=== PATIENT | female | born 1960 | race Caucasian/White ===

== ENCOUNTER 2017-03-24 20:37 | Emergency (ER) | payer BC ==
[2017-03-24 21:25] LABS: #Basophils 0.1 thou/uL (0.0-0.2); #Eosinphils 0.1 thou/uL (0.0-0.7); #Lymphocytes 1.5 thou/uL (1.20-3.40); #Monocytes 0.5 thou/uL (0.11-0.59); #Neutrophils 2.6 thou/uL (1.40-6.50); %Basophils 1.7 % (0.0-1.0); %Eosinophils 3.1 % (0.0-10.0); %Lymphocytes 30.3 % (21.0-51.0); Hematocrit 38.3 % (36.0-47.0); Mean Platelet Volume 8.1 fL (7.4-10.4); Red Blood Cell (RBC) Count 4.48 mill/uL (4.20-5.40); White Blood Cell (WBC) Count 4.8 thou/uL (4.8-10.8)
[2017-03-24 21:28] LABS: Bilirubin Negative (Negative); Blood, Urine Trace (Negative); Glucose, Urine (Dipstick) Negative (Negative); Ketone, Urine 15 mg/dL (Negative); Nitrite Negative (Negative); Protein, Urine (Dipstick) Negative (Neg-Trace); Urobilinogen 0.2 mg/dL (0.2-1.0)
[2017-03-24 21:35] LABS: ALT (SGPT) 11 U/L (8-55); AST (SGOT) 22 U/L (5-34); Alkaline Phosphatase 95 U/L (40-150); Anion Gap 15 mmol/L (10-20); BUN (Urea Nitrogen) 26 mg/dL (9.8-20.1); Bilirubin, Total 0.6 mg/dL (0.2-1.2); CK (CPK) 93 U/L (29-168); Calc. Creatinine Clearance 0 mL/min (70-130); Calcium 9.8 mg/dL (7.8-10.44); Carbon Dioxide 20 mmol/L (22-29); Chloride 108 mmol/L (98-107); Estimated GFR-MDRD 77; Globulin 2.8 g/dL (2.4-3.5); Protein, Total 6.9 g/dL (6.0-8.3)
[2017-03-24 21:35] LABS: Bacteria/HPF 2+ HPF (None Seen); RBC/HPF 0-3 HPF (0-3)
[2017-03-24 21:36] LABS: Troponin I Less than 0.010 ng/mL (< 0.028)
--- NOTE | 2017-03-24 21:56 | RAD ---
AP VIEW OF THE CHEST: 03/24/17 INDICATION: History of gastric sleeve surgery last month, now with back pain, palpitations, hand and foot numbne ss. IMPRESSION: No acute cardiopulmonary abnormality. The examination is not appreciably changed from comparison christine ed 01/20/17. POS: [facility]
== END 2017-03-24 22:18 | disposition home or self-care (01) ==
LOC: SCSER 20:37
DX: R20.2 Paresthesia of skin (principal); R11.0 Nausea; I10 Essential (primary) hypertension; E66.9 Obesity, unspecified; E87.6 Hypokalemia; F32.9 Major depressive disorder, single episode, unspecified; F41.9 Anxiety disorder, unspecified
CPT/HCPCS: 71010; 80053; 81003; 81015; 82550; 82553; 84484; 85025; 85379; 93005

== ENCOUNTER 2018-05-15 19:59 | Observation (INO) | payer BC ==
[~2018-05-15 19:59] MED LIST: Iopamidol 300 61% 100 ML VIAL FS ONE
[2018-05-15] MEDS ORDERED: Morphine 4 MG/ML VIAL ONE ×2 (20:21→21:32)
[2018-05-15 20:35] LABS: Bilirubin Negative (Negative); Blood, Urine Negative (Negative); Clarity Clear (Clear); Glucose, Urine (Dipstick) Negative (Negative); Leukocyte Small (Negative); Nitrite Negative (Negative); Protein, Urine (Dipstick) Negative (Neg-Trace); Specific Gravity, Urine 1.025 (1.005-1.030); Urobilinogen 0.2 mg/dL (0.2-1.0)
[2018-05-15 20:36] LABS: Bacteria/HPF Rare-Few HPF (None Seen); Crystals/HPF 1+ CA OXALATE HPF (Negative); RBC/HPF 0-3 HPF (0-3); Squamous Epithelial 0-3 HPF (0-3)
[2018-05-15 20:37] LABS: Hemoglobin 13.8 g/dL (12.0-16.0); Mean Corpuscular HGB CONC 33.2 g/dL (32.0-36.0); Mean Corpuscular Hemoglobin 29.4 pg (27.0-31.0); Mean Corpuscular Volume 88.7 fL (78.0-98.0); Mean Platelet Volume 7.9 fL (7.4-10.4); Platelet Count 177 thou/uL (130-400); Red Blood Cell (RBC) Count 4.69 mill/uL (4.20-5.40); White Blood Cell (WBC) Count 7.8 thou/uL (4.8-10.8)
[2018-05-15 20:38] LABS: #Neutrophils 4.3 thou/uL (1.40-6.50); %Basophils 1.5 % (0.0-1.0); %Eosinophils 1.9 % (0.0-10.0); %Monocytes 6.7 % (0.0-10.0); %Neutrophils 54.9 % (42.0-75.0)
[2018-05-15 20:39] LABS: #Basophils 0.1 thou/uL (0.0-0.2); #Eosinphils 0.1 thou/uL (0.0-0.7); #Lymphocytes 2.7 thou/uL (1.20-3.40); #Monocytes 0.5 thou/uL (0.11-0.59)
[2018-05-15 20:56] LABS: ALT (SGPT) 8 U/L (8-55); AST (SGOT) 18 U/L (5-34); Albumin 4.2 g/dL (3.5-5.0); Alkaline Phosphatase 69 U/L (40-150); Anion Gap 13 mmol/L (10-20); BUN (Urea Nitrogen) 26 mg/dL (9.8-20.1); Bilirubin, Total 0.2 mg/dL (0.2-1.2); Calc. Creatinine Clearance 0 mL/min (70-130); Calcium 9.3 mg/dL (7.8-10.44); Carbon Dioxide 24 mmol/L (22-29); Chloride 108 mmol/L (98-107); Estimated GFR-MDRD 79; Globulin 2.3 g/dL (2.4-3.5); Glucose 97 mg/dL (70-105); Lipase 75 U/L (8-78); Protein, Total 6.5 g/dL (6.0-8.3); Sodium 141 mmol/L (136-145)
[2018-05-15] MEDS ORDERED: Ondansetron PF 4 MG/2 ML Vial ONE (21:37)
--- NOTE | 2018-05-15 22:28 | CT ---
CT OF THE ABDOMEN AND PELVIS WITH IV CONTRAST: 05/15/18 INDICATION: Abdominal pain in the left upper quadrant for two days. COMPARISON: CT of the abdomen and pelvis dated 08/26/10. FINDINGS: There are dilated loops of small bowel within the upper abdomen with a suggested transition zone seen within the right lower quadrant on image 50 of series 2. There is a moderate sized hiatal hernia. There is postsurgical changes of prior gastroplasty. The lung bases are clear. The liver, spleen, pancreas and adrenal glands are normal appearing. No focal adrenal lesions evident . There are moderate calcifications involving the abdominal aorta. The appendix is not definitely seen. No free fluid is evident within the pelvis. The bladder, rectum, and perirectal soft tissues are within normal limits. There are multiple small phleboliths within th e lower pelvis. No definite acute osseous abnormality is evident. IMPRESSION: 1. Findings suspicious for mild partial small bowel obstruction. Transition zone seen within the right lower quadrant of the abdomen. 2. Moderate hiatal hernia. 3. Gastroplasty change. 4. Colonic diverticulosis. 5. Other chronic findings as above. POS: [facility]
[2018-05-15] MEDS ORDERED: Oxymetazoline HCl 0.05% ( 15 ML ) ONE (23:04)
[2018-05-15] MEDS ORDERED: Lidocaine 2% Jelly 5 ML TUBE ONE (23:04)
--- NOTE | 2018-05-15 23:48 | RAD ---
AP VIEW CHEST: 05/15/18 HISTORY: NG tube placement. AP view chest is obtained on 05/15/18. Comparison made to previous exam from 03/24/17. AP view chest demonstrates a nasogastric tube in place. Distal tip clearly not visible. I do not see the distal tip in the region of the stomach. The lungs are well aerated. No evidence of active intrathoracic disease seen. No evidence of effusion s, pneumonia, or pneumothorax seen. IMPRESSION: Unremarkable AP view chest. Position of NG tube is not clearly visible. The radiograph may be underpe netrated. Repeat radiograph with better penetrated radiograph and nonportable radiograph may be of us e. POS: [facility]
[2018-05-16] MEDS ORDERED: Ondansetron PF 4 MG/2 ML Vial IVP PRN ×2 (00:55→07:18)
[2018-05-16] MEDS ORDERED: Ondansetron ODT 4 MG TAB SL PRN ×2 (00:55→07:18)
[2018-05-16] MEDS ORDERED: Sodium Chloride 0.9% 1,000 ML IV SCH (00:55)
[2018-05-16] MEDS ORDERED: Eucerin (Mineral Oil/Petrolatum,White) 30 gm Jar TOP PRN (07:18)
[2018-05-16] MEDS ORDERED: Sodium Chloride 0.65% Nasal 44 ML BOT EA NARE PRN (07:18)
[2018-05-16] MEDS ORDERED: Artificial Tears 18 DROP/0.9 ML EA EYE PRN (07:18)
[2018-05-16] MEDS ORDERED: Acetaminophen 650 MG Suppository PR PRN (07:18)
[2018-05-16] MEDS ORDERED: Bisacodyl 10 MG SUPP PR PRN (07:18)
[2018-05-16] MEDS ORDERED: hydrALAZINE 20 MG/ML VIAL SLOW IVP PRN (07:18)
[2018-05-16] MEDS ORDERED: D5 0.9% NS w/ 20 mEq KCl 1,000 ML IV SCH (07:30)
[2018-05-16] MEDS ORDERED: Pantoprazole 40 MG VIAL IVP SCH (09:00)
--- NOTE | 2018-05-16 11:32 | RAD ---
SMALL BOWEL FOLLOW THROUGH: INDICATIONS: Small bowel obstruction. FINDINGS: Ophthalmic Dispenser images demonstrate enteric contrast from the patient's prior CT of the abdomen and pelvis done on 05/15/2018, to reside now within the right hemicolon, as well as the transverse colon. The bowel distention appears slightly less prominent than on the comparison CT examination. There is a gastric catheter projecting in the region of a hiatal hernia. There are gastroplasty changes within the lef t upper quadrant. The lung bases are clear. Subsequent images after administration of Gastrografin contrast demonstrate contrast opacification of multiple nondilated loops of small bowel. There is ev entual migration of contrast to the level of the right hemicolon by 30 minutes. IMPRESSION: Resolution of previously seen mild partial small bowel obstruction on the comparison CT examination o f 05/15/2018. POS: [facility]
[2018-05-16] MEDS ORDERED: Acetaminophen 500 MG TAB PO PRN (11:45)
[2018-05-16] MEDS ORDERED: Zolpidem Tartrate 5 MG TAB PO PRN (11:45)
--- NOTE | 2018-05-16 12:10 | HP ---
PRIMARY CARE PHYSICIAN: Pau Case M.D. REASON FOR ADMISSION: Partial small-bowel obstruction. HISTORY OF PRESENT ILLNESS: A 57-year-old female who had previously morbid obesity who underwent gas tric sleeve surgery in 2017. Patient came to emergency room today with the complaint of abdominal pa in which was started 2 days ago which was predominantly in epigastric as well as in left upper quadra nt region which was getting worse with food. Patient did not have any vomiting at home, but she was experiencing nausea and distention. In the emergency room after she was given morphine, she had one episode of vomiting containing food particle and bile. She denies any fever or chills. She denies a ny UTI symptoms. She denies any constipation, diarrhea, melena or hematochezia. She had a bowel mov ement yesterday, she was experiencing her bowel sound. In the emergency room, patient had CT of the abdomen and pelvis which suspected partial small-bowel obstruction. Dr. Irizarry was notified from [facility] emergency room and subsequently this patient was transferred to our hospital for admission. This morning when I saw at that time, patient was uncomfortable with NG tube with low intermittent frias ction. We ordered small bowel x-ray and that came back normal. At that point, we discontinued NG tu be and started on clear liquid diet. Patient did not have any abdominal pain when I saw this patient in the morning, she was feeling much better. She denies any similar problem in past. Patient retro spectively looked and she reports that she was eating too much lately and that might have contributed to current presentation. REVIEW OF SYSTEMS: The following complete review of systems was negative, unless otherwise mentioned in the HPI or below: Constitutional: Weight loss or gain, ability to conduct usual activities. Sk in: Rash, itching. Eyes: Double vision, pain. ENT/Mouth: Nose bleeding, neck stiffness, pain, te nderness. Cardiovascular: Palpitations, dyspnea on exertion, orthopnea. Respiratory: Shortness of breath, wheezing, cough, hemoptysis, fever or night sweats. Gastrointestinal: Poor appetite, abdom inal pain, heartburn, nausea, vomiting, constipation, or diarrhea. Genitourinary: Urgency, frequenc y, dysuria, nocturia. Musculoskeletal: Pain, swelling. Neurologic/Psychiatric: Anxiety, depressio n. Allergy/Immunologic: Skin rash, bleeding tendency. Please see my HPI for pertinent positive and negative. All other review of systems reviewed and negative except as mentioned in the HPI. PAST MEDICAL HISTORY: History of morbid obesity required bariatric gastric sleeve surgery, hypertens ion. PAST SURGICAL HISTORY: Gastric sleeve surgery for morbid obesity, x2, hysterectomy. PAST PSYCHIATRIC HISTORY: Anxiety and depression. SOCIAL HISTORY: Patient is and lives at home with family. No history of tobacco, alcohol or illicit drug abuse. FAMILY HISTORY: No family history of coronary artery disease, stroke or cancer. ALLERGIES: CODEINE gives nausea. LEVAQUIN gives rash. CURRENT HOME MEDICATIONS: Adderall 12.5 mg in the morning, diazepam 5 mg t.i.d., Lexapro 10 mg daily , lamotrigine 100 mg daily and olanzapine 5 mg p.o. at bedtime. EMERGENCY ROOM COURSE: Patient was given morphine x2, Zofran x2. PHYSICAL EXAMINATION: VITAL SIGNS: On arrival, blood pressure 161/94, pulse 84, respiratory rate 19, temperature 98.6, sat uration 100% on room air, weight 51.7 kilograms. GENERAL: Patient is currently alert, awake, no obvious acute distress. HEAD: Normocephalic, atraumatic. EYES: Pupils are round, reactive to light. Extraocular muscles intact. ENT: Oropharynx within normal limits. Moist mucous membranes. No oral lesion, no pharyngeal erythe ma, no exudate. NECK: Supple, no JVD, no thyromegaly, no carotid bruit, no jugular venous distention. LUNGS: Clear to auscultation without any rhonchi or rales. CARDIAC: S1, S2 regular. No murmur, no gallop, no rub. ABDOMEN: Soft, bowel sounds present, nontender, nondistended. No organomegaly, no mass, no suprapub ic tenderness. BACK: Unremarkable, no CVA tenderness. EXTREMITIES: Upper extremity: Passive movement of all joints are normal. Lower extremity: No gulshan a. Good distal pulsation. SKIN: No skin rash. HEMATOLOGICAL: No lymphadenopathy. PSYCHIATRIC: Normal affect. SIGNIFICANT LABORATORY DATA: EKG showing normal sinus rhythm, nonspecific ST-T changes. CT of the a bdomen and pelvis done in the emergency room, suspected for partial small-bowel obstruction, moderate hiatal hernia diverticulosis. CBC: WBC 7.8, hemoglobin 13.8, platelets 177. BMP: Sodium 141, potassium 4.0, chloride 108, carbon dioxide 24, anion gap 13, BUN 26, creatinine 0.75, glucose 97, calcium 9.3. LFT: AST 18, ALT 8, al kaline phosphatase 69, albumin 4.3, lipase 75. Urinalysis: Leukocyte esterase small. Chest x-ray based on my review, no acute cardiopulmonary process. Small bowel x-ray reported as reso lution of partial small-bowel obstruction. ASSESSMENT AND PLAN: 1. Mild partial small-bowel obstruction, resolved with conservative therapy. Small bowel x-ray is d one and it is normal. We will discontinue NG tube with low intermittent suction and we will start cl ear liquid diet and advance to full liquid diet today. We will resume solid food tomorrow. Gastroen terology and General Surgery consulted for their opinion. 2. Anxiety and depression. We will resume patient's home medication, diazepam. 3. Lexapro, olanzapine and lamotrigine as per home dosage. 4. History of morbid obesity. Patient has lost almost 100 pounds after gastric sleeve surgery. The patient is doing very well. 5. Deep venous thrombosis prophylaxis not needed because we are expecting discharge in 24 hours. 6. Gastrointestinal prophylaxis, Protonix 40 mg IV b.i.d. 7. Code status: The patient is FULL CODE. Patient's is surrogate decision maker. Disposition plan within 24 hours. Plan of care discussed with the patient's family member at the bed side.
[2018-05-16] MEDS ORDERED: MD-Gastroview 120 ML BOT ONE (13:40)
[2018-05-16] MEDS ORDERED: Diazepam 5 MG TAB PO SCH (15:00)
[2018-05-16 15:08] VITALS: BMI 20.5
[2018-05-16] MEDS ORDERED: Sodium Chloride 0.9% 10 ML ONE (16:20)
[2018-05-16 16:33] VITALS: BP 129/74; TEMP 98.2
--- NOTE | 2018-05-16 17:23 | DIS ---
DATE OF ADMISSION: 05/15/2018 DATE OF DISCHARGE: 05/16/2018 PRIMARY CARE PHYSICIAN: Dr. Pau Case. DISCHARGE DISPOSITION: Home. PRIMARY DISCHARGE DIAGNOSIS: Partial small-bowel obstruction, resolved. SECONDARY DISCHARGE DIAGNOSES: Anxiety, depression, hypertension, history of morbid obesity. PRIMARY PROCEDURE/OPERATION: None. RADIOLOGICAL INVESTIGATION: Abdomen and pelvis CT scan showed partial small bowel obstruction. Ches t x-ray normal. Small bowel x-ray showed resolution of obstruction. SIGNIFICANT LABORATORY DATA: CBC, BMP, UA are normal. DISCHARGE MEDICATIONS: The patient will continue all her previous home medication without any change . CONTRAINDICATIONS: None. CODE STATUS: FULL CODE. INPATIENT CONSULTANTS: Dr. Irizarry and Dr. Bauman saw this patient and cleared discharge. ALLERGIES: CODEINE, LEVOFLOXACIN. DISCHARGE PLAN: Post hospital, she will follow up with primary care physician and Dr. Irizarry as ins tructed. HOSPITAL COURSE: The patient presented with abdominal pain in the [place] [facility] whe re she had CT of the abdomen and pelvis which suspected partial small-bowel obstruction. She was ove rnight, admitted to the hospital. She was treated with NG tube with low intermittent suction. We di d small bowel x-ray that came back normal. Dr. Irizarry and Dr. Bauman evaluated this patient and johnnie ared for discharge. Patient also wants to go home. She has no pain and tolerating p.o. well. Per h er request, we are discharging today.
[2018-05-16] MEDS ORDERED: OLANZapine 5 MG TAB PO SCH (21:00)
--- NOTE | 2018-05-17 08:26 | CON ---
DATE OF CONSULTATION: 05/16/2018 REASON FOR CONSULTATION: Partial small-bowel obstruction. HISTORY OF PRESENT ILLNESS: Ms. Sotelo is a 57-year-old female who ate dinner last night and had fa irly severe epigastric pain with some bloating. She vomited once bilious and food material and with the pain not improving, she came to the emergency room. The pain did not radiate to her back or shou lder. She thought that possibly she was having a gallbladder attack. She recalls being told that he r bariatric surgery counseling sessions sometimes in folks after weight loss will develop gallstones, but she has not had any pain like this in the past. In the emergency room, she had plain films that showed some distended small bowel. She had a CAT scan performed that showed dilation of proximal sm all bowel with a transition zone to the distal small bowel in the right lower quadrant. This was fel t to be a mild partial obstruction by the radiologist. There was a moderate sized hiatal hernia, pre vious episode of gastric surgery, some calcification of abdominal aorta. There was no comment on the gallbladder. The patient had an NG tube placed which put out 250 to 300 mL and then stopped having output today. She had a small bowel follow through at 9:02 which showed no signs of small bowel dila tation with the radiologist felt there was resolution of the partial obstruction, contrast made to th e right hemicolon. She was placed on full liquid diet. She is having no pain, no vomiting, and she wants to go home. She reports that she did have normal bowel movements yesterday. She has not had a ny pain like this in the past. She has had a bowel movement today and again no nausea or vomiting. PAST SURGICAL HISTORY: Previous surgeries include the gastric bypass as well as previous hysterectom y and . PAST MEDICAL HISTORY: Hypertension. MEDICATIONS AT HOME: Adderall, diazepam, Lexapro, lamotrigine, olanzapine at bedtime. FAMILY HISTORY: Negative for colorectal cancer or liver disease. ALLERGIES: CODEINE AND LEVAQUIN. MEDICATIONS: Tylenol, Artificial Tears, diazepam, Lexapro, Lamictal, morphine, Zofran, potassium chl oride, Ambien. REVIEW OF SYSTEMS: Negative for dysphagia or odynophagia. Negative for chronic back pain. Negative for abscess or abdominal pain in the past or vomiting or diarrhea. Negative for hematochezia, melen a or hematemesis. Negative for chest pain, shortness of breath, dyspnea on exertion, orthopnea, ashley pheral edema. PHYSICAL EXAMINATION: VITAL SIGNS: Temperature is 98, pulse 67, blood pressure is 135/71. HEENT: Oropharynx without lesions. NECK: Supple. LUNGS: Clear. HEART: Regular rate and rhythm without clicks, rubs or murmurs. ABDOMEN: Soft and nontender. There is no rebound. There is no guarding. There is no evidence of h ernias. Bowel sounds are present, quiescent. EXTREMITIES: No clubbing, cyanosis or edema. LABORATORY STUDIES: White count 7.8, hemoglobin 13.8, platelet count 177 yesterday. Comprehensive m etabolic profile is normal except for BUN 26, creatinine 0.75 yesterday. Liver function tests were n ormal. Lipase was normal. Images were reviewed. ASSESSMENT: Ms. Sotelo has what sounds like a partial bowel obstruction more based on the imaging t strange her symptoms. Symptoms have now resolved. Other considerations would have been episode of bilia ry colic, but there are no overt signs of gallstones. Would advance diet as tolerated. I think if s he is doing fine, she can go home later today. I did tell her that it would ultimately be up to Dr. Irizarry, her surgeon. I think if she would have any similar episodes in the future, she should have a gallbladder ultrasound. RECOMMENDATIONS: I have recommended she consider some of colorectal cancer screening, whether that b e a colonoscopy or a routine Hemoccult stool yearly.
[2018-05-17] MEDS ORDERED: AMPHETAMINE PO SCH (09:00)
[2018-05-17] MEDS ORDERED: DEXTROAMPHETAMINE PO SCH (09:00)
[2018-05-17] MEDS ORDERED: Escitalopram Oxalate 10 mg Tablet PO SCH (09:00)
[2018-05-17] MEDS ORDERED: lamoTRIgine 100 MG TAB PO SCH (09:00)
== END 2018-05-16 17:23 | disposition home or self-care (01) ==
LOC: SCSER 19:59 → 3SE 23:00
PROVIDERS: ADMIT Internal Medicine; ATTEND Internal Medicine
DX: K56.600 Partial intestinal obstruction, unspecified as to cause (principal); F41.9 Anxiety disorder, unspecified; F32.9 Major depressive disorder, single episode, unspecified; I10 Essential (primary) hypertension; Z79.899 Other long term (current) drug therapy; Z88.1 Allergy status to other antibiotic agents; Z88.5 Allergy status to narcotic agent; Z98.84 Bariatric surgery status
CPT/HCPCS: 71045; 74177; 74250; 80053; 81003; 81015; 83690; 85025; 90471; 90686; 93005; 96361; 96374; 96375; 96376; C9113; G0008; G0378; J2270; J2405

== ENCOUNTER 2018-08-27 11:25 | Inpatient (IN) | payer BC ==
[2018-08-27] MEDS ORDERED: Rocuronium Bromide 10 MG/ML (10ML VIAL) ONE (11:34)
[2018-08-27] MEDS ORDERED: Lidocaine 1% PF 5 ML VIAL ONE (11:34)
[2018-08-27] MEDS ORDERED: Ondansetron PF 4 MG/2 ML Vial ONE ×3 (11:34→15:51)
[2018-08-27] MEDS ORDERED: Glycopyrrolate 0.2 MG/ML 5 ML SYRINGE ONE (11:34)
[2018-08-27] MEDS ORDERED: Ketorolac Tromethamine 30 MG/ML VIAL ONE (11:34)
[2018-08-27] MEDS ORDERED: Dexamethasone 20 MG/5 ML VIAL ONE (11:34)
[2018-08-27] MEDS ORDERED: PROPOFOL 200 MG/20 ML VIAL ONE (11:34)
[2018-08-27] MEDS ORDERED: PHENYLEPHRINE-NS 100 MCG/ML 10 ML SYRINGE ONE (11:34)
[2018-08-27] MEDS ORDERED: Morphine 4 MG/ML VIAL ONE ×3 (12:04→15:08)
[2018-08-27 12:06] LABS: #Basophils 0.1 thou/uL (0.0-0.2); #Eosinphils 0.1 thou/uL (0.0-0.7); #Lymphocytes 1.5 thou/uL (1.20-3.40); #Monocytes 0.5 thou/uL (0.11-0.59); #Neutrophils 5.4 thou/uL (1.40-6.50); %Basophils 1.1 % (0.0-1.0); %Eosinophils 1.5 % (0.0-10.0); %Lymphocytes 19.5 % (21.0-51.0); %Neutrophils 70.9 % (42.0-75.0); Hemoglobin 12.5 g/dL (12.0-16.0); Mean Corpuscular HGB CONC 31.8 g/dL (32.0-36.0); Mean Corpuscular Hemoglobin 28.7 pg (27.0-31.0); Mean Corpuscular Volume 90.4 fL (78.0-98.0); Mean Platelet Volume 6.9 fL (7.4-10.4); Platelet Count 209 thou/uL (130-400); RBC Distribution Width 11.5 % (11.5-14.5); Red Blood Cell (RBC) Count 4.35 mill/uL (4.20-5.40); White Blood Cell (WBC) Count 7.6 thou/uL (4.8-10.8)
[2018-08-27 12:23] LABS: ALT (SGPT) 77 U/L (8-55); AST (SGOT) 307 U/L (5-34); Alkaline Phosphatase 154 U/L (40-150); Anion Gap 16 mmol/L (10-20); BUN (Urea Nitrogen) 24 mg/dL (9.8-20.1); Bilirubin, Total 0.8 mg/dL (0.2-1.2); Calc. Creatinine Clearance 0 mL/min (70-130); Calcium 9.6 mg/dL (7.8-10.44); Carbon Dioxide 24 mmol/L (22-29); Chloride 106 mmol/L (98-107); Estimated GFR-MDRD 76; Glucose 78 mg/dL (70-105); Lipase 49 U/L (8-78); Potassium 4.6 mmol/L (3.5-5.1); Sodium 141 mmol/L (136-145)
--- NOTE | 2018-08-27 13:38 | ULT ---
ULTRASOUND GALLBLADDER RIGHT UPPER QUADRANT: Date: 08/27/18 HISTORY: Abdominal pain. COMPARISON: CT from 05/15/18. FINDINGS: Real-time Torres scale and color evaluation of the right upper quadrant of the abdomen was performed. The visualized portions of the pancreas and IVC are unremarkable. The gallbladder is distended, measu ring over 12.0 cm in length. Very small volume cholecystic fluid. Gallbladder wall upper limits of no rmal, just over 3.0 mm. There is cholelithiasis. Distal common bile duct measures over 1.0 cm. Right kidney measures 10.6 x 4.4 x 5.2 cm, without mass, hydronephrosis, or abnormal calcifications. IMPRESSION: 1. Dilated common bile duct measuring over 1.0 cm in size. This may be sequelae of distal obstructiv e choledocholithiasis. ERCP or MRCP is recommended. 2. Cholelithiasis. 3. Markedly distended gallbladder with gallbladder wall thickness at the upper limits of normal. Thi s may be sequelae of reservoir effect due to distal common bile duct obstruction. This may be further interrogated on a MRCP examination. 4. Low grade intrahepatic biliary dilatation. POS: [facility]
[2018-08-27] MEDS ORDERED: Piperacillin/Tazobactam 2.25 GM VIAL ONE ×2 (14:51→14:59)
[2018-08-27] MEDS ORDERED: Sodium Chloride 0.9% 100 ML ONE ×2 (14:53→15:00)
[2018-08-27] MEDS ORDERED: Bupivacaine HCl 0.5%/Epinephrine 1:200,000/PF 30 ml Vial ONE (16:20)
[2018-08-27] MEDS ORDERED: Fentanyl 100 MCG/2 ML VIAL ONE (16:31)
[2018-08-27] MEDS ORDERED: Famotidine/PF 20 mg/2ml Vial ONE (16:31)
[2018-08-27] MEDS ORDERED: Bupivacaine/Epinephrine 0.25% 30 ML VIAL ONE (16:32)
[2018-08-27] MEDS ORDERED: Iothalamate Meglumine 60% 50 ML VIAL FS ONE (16:50)
--- NOTE | 2018-08-27 18:24 | HP ---
CHIEF COMPLAINT: Right upper quadrant pain. HISTORY OF PRESENT ILLNESS: This is a 57-year-old female who is status post laparoscopic gastric sleeve several months ago, who has had 100 pounds of successful weight loss who was doing well, but now presents with a few day history of pain in her epigastric and right upper quadrant. Seen in the [facility] Room where she is found to have cholecystitis. No elevation of her liver function tests. Her common bile duct is greater than 1 cm in diameter. She denies previous known history of gallstones, jaundice, pancreatitis. PAST MEDICAL HISTORY: Hypertension resolved. PAST SURGICAL HISTORY: Gastric sleeve and hysterectomy. MEDICATIONS: Taken daily none. ALLERGIES: CODEINE INTOLERANCE. LEVAQUIN IS AN ALLERGY. SOCIAL HISTORY: No smoking. No alcohol or other drugs. REVIEW OF SYSTEMS: Ten-system review of systems otherwise negative, unless described above. PHYSICAL EXAMINATION: VITAL SIGNS: Blood pressure is 122/81, pulse 67, respirations 12, she is afebrile. HEENT: Sclerae anicteric. Oropharynx clear. NECK: No lymphadenopathy. CHEST: Clear. HEART: Regular rate and rhythm. ABDOMEN: Soft, tender in the right lower quadrant with localized guarding or rebound. No abdominal hernias. EXTREMITIES: No ischemia or edema to extremities. LABORATORY DATA: White cell count 7, hemoglobin 12. Sodium 141, potassium 4.6, creatinine 0.78. Alkaline phosphatase, AST, ALT are 154, 307, 77. Lipase normal. Bilirubin normal. Ultrasound shows gallstones, thickened gallbladder wall and dilated common bile duct. ASSESSMENT: Acute cholecystitis with elevated liver function tests. PLAN: Laparoscopic cholecystectomy with intraoperative cholangiogram. Risks, benefits, and alternatives were discussed. She gives consent. We will do this today. Job ID: [id number]
[2018-08-27] MEDS ORDERED: hydrALAZINE 20 MG/ML VIAL SLOW IVP PRN (19:18)
[2018-08-27] MEDS ORDERED: Ondansetron PF 4 MG/2 ML Vial IVP PRN (19:18)
[2018-08-27] MEDS ORDERED: Dextrose 50% Abboject 50 ML SYRINGE SLOW IVP PRN (19:18)
[2018-08-27] MEDS ORDERED: Calcium Carbonate 500 MG ChewTAB PO PRN (19:18)
[2018-08-27] MEDS ORDERED: Morphine 4 MG/ML VIAL SLOW IVP PRN (19:18)
[2018-08-27] MEDS ORDERED: traMADol HCl 50 MG TAB PO PRN ×2 (19:18)
[2018-08-27] MEDS ORDERED: Dextrose 5% in Water 1,000 ML IV PRN (19:18)
[2018-08-27] MEDS ORDERED: Mag-Al 1200 mg/1200 mg/30 ML UDCUP PO PRN (19:18)
[2018-08-27] MEDS ORDERED: Promethazine HCl 25 MG/ML VIAL IM PRN (19:18)
--- NOTE | 2018-08-27 21:31 | RAD ---
OPERATIVE CHOLANGIOGRAM: Three images presented from OR under fluoroscopy. Indication: Intraoperative cholangiogram with imaging. FINDINGS: Common bile duct is opacified. There is spill into the duodenum. There is suggestion of filling defec t at the ampulla with a narrowed lumen at the ampulla. Consider further evaluation with ERCP as indic ated. POS: [facility]
[2018-08-27] MEDS: Famotidine 20 MG TAB PO SCH (21:41)
--- NOTE | 2018-08-27 21:47 | HP ---
PRIMARY CARE PHYSICIAN: Pau Case MD. CHIEF COMPLAINT: Right upper quadrant abdominal pain. HISTORY OF PRESENT ILLNESS: Ms. Sotelo is a 57-year-old female, with past medical history of depression, who presents to the emergency department for having right upper quadrant abdominal pain for over 1 week. The patient reports that she did not have any periods, but did report some worsening of pain. Denies any chest pain or shortness of breath. The patient reports that she has been taking her medication as prescribed. The patient denies any history of smoking or similar pain in the past. The patient was seen in the ER. Surgery was consulted who performed laparoscopic cholecystectomy. The patient was also seen by GI, who will perform ERCP tomorrow. The patient was seen after cholecystectomy and she denied any pain to me. She was noted to be having full liquid diet without any problem. PAST MEDICAL HISTORY: Includes depression. PAST SURGICAL HISTORY: and hysterectomy. SOCIAL HISTORY: The patient denies any alcohol use, smoking, or drug use. FAMILY HISTORY: Father had rare blood disease which she inherited. The patient is unable to remember that name. CURRENT MEDICATIONS: Include; 1. Escitalopram. 2. Lamotrigine. REVIEW OF SYSTEMS: A 10-point review of system negative other than mentioned in the HPI. ALLERGIES: THE PATIENT'S LIST OF ALLERGIES INCLUDES CODEINE AND LEVAQUIN. PHYSICAL EXAMINATION: VITAL SIGNS: Blood pressure 111/82, pulse 79, respiration rate 16, temperature 97.7, 100% O2 saturation on room air. HEAD: Atraumatic. GENERAL: The patient is alert and noted to be not in acute distress. EAR, NOSE, AND THROAT: No erythema, swelling, or discharge noted. NECK: No lymphadenopathy noted. CARDIOVASCULAR: Regular rate and rhythm. No murmurs, rubs, or gallops. EYES: Extraocular movement intact. PULMONARY: Clear bilaterally. No wheezes. ABDOMEN: Soft, nontender. Bowel sounds diminished. Surgical scar area noted. LOWER EXTREMITIES: No edema noted. NEUROLOGICAL: The patient is alert and cooperative. SKIN: No rashes noted. LABORATORY DATA: Sodium 141, potassium 4.6, chloride 106, carbon dioxide 26, BUN 24, creatinine 0.78, glucose 78, AST 307, ALT 77, alkaline phosphatase 154, lipase 49. WBC is 7.6, hemoglobin 12.5, hematocrit 39.3, platelets 209. IMAGING STUDIES: Ultrasound abdomen noted to be positive for common bile duct dilatation, cholelithiasis, and distended gallbladder. ASSESSMENT AND PLAN: 1. Cholelithiasis. 2. Choledocholithiasis. 3. Transaminitis. 4. The patient was seen status post laparoscopic cholecystectomy. The patient is doing well since then. The patient will be n.p.o. at midnight for endoscopic retrograde cholangiopancreatography. GI was consulted. The patient's transaminitis is likely due to cholelithiasis and choledocholithiasis. 5. Pain control, IV fluids. 6. Continue home medications. 7. The patient is full code. 8. Medical power of title attorney, . 9. Deep venous thrombosis prophylaxis, sequential compression device. Job ID: [id number]
--- NOTE | 2018-08-27 22:09 | CON ---
DATE OF CONSULTATION: 08/27/2018 REASON FOR CONSULT: Abdominal pain, abnormal LFTs, and cholangiogram showing a filling defect in the common bile duct. HISTORY OF PRESENT ILLNESS: Makeda Sotelo is a very pleasant 57-year-old female who has gastric sleeve surgery by Dr. Chong Irizarry in 12/2017. She has lost 100 pounds since her surgery. She was seen in the [facility] ER abdominal pain and nausea. She was found to have gallstones and also abnormal LFTs and dilated CBD. She was transferred to this facility later on. She was seen by Dr. Irizarry and underwent laparoscopic cholecystectomy this afternoon. She had a cholangiogram done which revealed a filling defect. The patient she came back from the gallbladder surgery. She is awake and appears comfortable. She has left abdominal pain because of the above-said surgery this afternoon. The patient tells me she has abdominal pain for the last 1 week off and on. Pain is predominantly over the right upper quadrant epigastric area. She has no nausea or vomiting. No history of fever. No history of chills. No similar episodes in the past. She was found to have a dilated CBD on abdominal sonogram and also she has a gallstone. Her liver function tests are elevated. Her bilirubin is 0.8, AST is 307, ALT 77, and alkaline phosphatase 151. Lytes are normal. She has normal CBC. She has no similar episodes and no other relevant history. ALLERGIES: MULTIPLE INCLUDES CODEINE, LEVAQUIN. SOCIAL HISTORY: The patient does not smoke or drink alcohol. MEDICAL ILLNESSES: 1. Hypertension. 2. Anxiety and depression. 3. History of gastric sleeve surgery in 2018 with weight loss. 4. Hysterectomy. MEDICATIONS: None at home. FAMILY HISTORY: Unremarkable. REVIEW OF SYSTEMS: A 10-point system review remarkable for abdominal pain. CONSTITUTIONAL: Negative for weight loss or gain, sense of well-being, ability to conduct usual activities, exercise tolerance. SKIN/BREAST: Negative for rash, itching, changes in hair growth or loss, nail changes, breast lumps, tenderness, swelling, nipple discharge. EYES: Negative for vision, double vision, tearing, blind spots, pain. ENT/MOUTH: Negative for headaches, vertigo, lightheadedness, injury. Vision, double vision, tearing, blind spots, pain, nose bleeding, colds, obstruction, discharge, dental difficulties, gingival bleeding, dentures, neck stiffness, pain, tenderness, masses in thyroid or other areas CARDIOVASCULAR: Negative for precordial pain, substernal distress, palpitations, syncope, dyspnea on exertion, orthopnea, nocturnal paroxysmal dyspnea, edema, cyanosis, hypertension, heart murmurs, varicosities, phlebitis, claudication. RESPIRATORY: Negative for pain, shortness of breath, wheezing, stridor, cough, hemoptysis, fever or night sweats GASTROINTESTINAL: Negative for poor appetite, dysphagia, indigestion, heartburn, eructation, nausea, vomiting, hematemesis, jaundice, constipation, or diarrhea, abnormal stools (bella-colored, tarry, bloody, greasy, foul smelling), flatulence, hemorrhoids, recent changes in bowel habits. GENITOURINARY: Negative for urgency, frequency, dysuria, nocturia, hematuria, polyuria, oliguria, unusual (or change in) color of urine, stones, hesitancy, change in size of stream, dribbling, acute retention or incontinence, libido, potency. MUSCULOSKELETAL: Negative for pain, swelling, redness or heat of muscles or joints, limitation of motion, muscular weakness, atrophy, cramps. NEUROLOGIC/PSYCHIATRIC: Negative for convulsions, paralyses, tremor, incoordination, parasthesias, difficulties with memory of speech, sensory or motor disturbances, or muscular coordination (ataxia, tremor), emotional problems, anxiety, depression, previous psychiatric care, unusual perceptions, hallucinations. ALLERGY/IMMUNOLOGIC: Negative for skin rash, anemia, bleeding tendency, polydipsia, polyuria, intolerance to heat or cold. PHYSICAL EXAMINATION: GENERAL: She is thin built, appears very comfortable. She is in no acute distress. VITAL SIGNS: Afebrile, her pulse is 67, blood pressure 120/80. HEENT: Conjunctivae clear. NECK: Supple. No adenitis or thyromegaly noted. CARDIOVASCULAR: First and second heart sounds heard. LUNGS: Clear to auscultation. ABDOMEN: Soft and not distended. Abdomen is tender across the abdomen because of laparoscopic cholecystectomy this afternoon. No rebound or guarding. IMPRESSION: A 57-year-old female with abdominal pain, abnormal LFTs, and abdominal sonogram showing a dilated CBD. She had a cholangiogram this evening and again, the cholangiogram shows a filling defect in the common bile duct. Clinical impression; 1. Cholecystitis, choledocholithiasis. 2. Status post gastric sleeve surgery in 12/2017. 3. Hysterectomy. I did speak to Ms. Sotelo about the endoscopic retrograde cholangiopancreatography and explained about the procedure. She understood the procedure. Anyway I will try to reinforce the same information to her tomorrow morning when she is more awake. She will be kept n.p.o. after clear liquid diet and hopefully can pursue the ERCP and stone extraction tomorrow. Job ID: [id number]
[2018-08-27 22:18] VITALS: BMI 25.2
[2018-08-27] MEDS: Famotidine/PF 20 mg/2ml Vial SLOW IVP SCH (22:53)
[2018-08-27] MEDS: Sodium Chloride 0.9% 1,000 ML IV SCH (22:54)
[2018-08-27] MEDS ORDERED: Diazepam 5 MG TAB PO PRN (23:52)
[2018-08-28] MEDS ORDERED: OLANZapine 5 MG TAB PO SCH ×2 (00:30→21:00)
[2018-08-28] MEDS ORDERED: lamoTRIgine 100 MG TAB PO SCH ×2 (00:30→21:00)
[2018-08-28] MEDS ORDERED: Escitalopram Oxalate 10 mg Tablet PO SCH ×2 (00:30→21:00)
--- NOTE | 2018-08-28 00:52 | OP ---
DATE OF PROCEDURE: 08/27/2018 DISCHARGE DIAGNOSES: Cholecystitis and choledocholithiasis. POSTOPERATIVE DIAGNOSES: Cholecystitis and choledocholithiasis. PROCEDURE PERFORMED: Laparoscopic cholecystectomy with intraoperative cholangiogram. ANESTHESIA: General. ESTIMATED BLOOD LOSS: Minimal. COMPLICATIONS: None. SPECIMEN: Gallbladder. FINDINGS: There was a nonobstructing stone in the distal common bile duct. DESCRIPTION OF PROCEDURE: The patient was taken to the operating room and laid supine on the operating room table. After general anesthetic was obtained, the abdomen was prepped and draped in a sterile fashion. A curved incision was made below the umbilicus. Cautery was used to dissect down to and score the fascia. Abdominal cavity was entered bluntly using a Kimberlyn clamp. Holding stitch of PDS was placed on each side of the fascia. Wayne trocar was placed. High-flow pneumoperitoneum was obtained. An upper midline 5 mm port and 2 right upper quadrant 5 mm ports were placed under direct visualization. The gallbladder was retracted from the gallbladder fossa. The peritoneum was opened anteriorly and posteriorly. The critical view triangle was seen showing only the cystic duct and cystic artery branching medial to lateral, no other branching structures. Clip was placed on the cystic duct. A small ductotomy was made just proximal to that and a cholangiocatheter was brought in through a separate stab incision, placed in the cystic duct and a cholangiogram was performed, which shows contrast flow into the duodenum, but a fairly large distal common bile duct stone. The common bile duct was markedly dilated. There was good filling of the right and left hepatic duct system proximally. The cholangiocatheter was removed and a PDS Endoloop was used to ligate the cystic duct proximal to the ductotomy. The cystic artery was taken using two clips proximally, one clip distally, cut using laparoscopic scissors. Cautery was used to dissect the gallbladder out of the gallbladder fossa. The gallbladder was placed in an Endo catch bag and brought out through the Wayne. There was no bleeding or bile in the liver bed. Right upper quadrant was irrigated using sterile solution. All port sites were infiltrated using local anesthetic. All ports were removed under camera visualization. Pneumoperitoneum was let down. PDS was used to close the fascial defect below the umbilicus. All incisions were irrigated and closed using 4-0 Monocryl and Dermabond. The patient will need a postop ERCP. The patient was sent to Recovery in stable condition. All sponge counts, needle counts, and lap counts were correct. Job ID: [id number]
[2018-08-28] MEDS: Morphine 4 MG/ML VIAL SLOW IVP PRN ×2 (02:43→06:11)
[2018-08-28 06:02] LABS: #Lymphocytes 0.7 thou/uL (1.20-3.40); #Monocytes 0.8 thou/uL (0.11-0.59); #Neutrophils 13.5 thou/uL (1.40-6.50); %Basophils 0.1 % (0.0-1.0); %Eosinophils 0.1 % (0.0-10.0); %Lymphocytes 4.5 % (21.0-51.0); %Monocytes 5.1 % (0.0-10.0); %Neutrophils 90.3 % (42.0-75.0); Hemoglobin 11.7 g/dL (12.0-16.0); Mean Corpuscular HGB CONC 32.2 g/dL (32.0-36.0); Mean Corpuscular Hemoglobin 30.2 pg (27.0-31.0); Mean Platelet Volume 7.5 fL (7.4-10.4); Platelet Count 216 thou/uL (130-400); RBC Distribution Width 11.1 % (11.5-14.5); Red Blood Cell (RBC) Count 3.88 mill/uL (4.20-5.40); White Blood Cell (WBC) Count 14.9 thou/uL (4.8-10.8)
[2018-08-28] MEDS: Famotidine/PF 20 mg/2ml Vial SLOW IVP SCH (07:48)
--- NOTE | 2018-08-28 10:34 | PDOC.GSPN ---
Surgery Progress Note: Subj - Subjective Patient reports: no new complaints, tolerating liquids well Surgery Progress Note: Obj - Vital signs Vital signs: Vital Signs - Most Recent Temp Pulse Resp BP Pulse Ox 97.5 F L 67 18 93/55 L 95 08/28/18 07:44 08/28/18 07:44 08/28/18 07:44 08/28/18 07:44 08/28/18 08:00 - Physical Exam General: no distress Respiratory: clear to auscultation Abdomen: soft, non tender Wound: healing well Surgery Progress Note: Results - Labs Result Diagrams: 08/28/18 05:20 08/27/18 12:00 Lab results: Laboratory Results - last 24 hr 08/28/18 05:20 WBC 14.9 H RBC 3.88 L Hgb 11.7 L Hct 36.4 MCV 94.0 MCH 30.2 MCHC 32.2 RDW 11.1 L Plt Count 216 MPV 7.5 Neutrophils % 90.3 H Lymphocytes % 4.5 L Monocytes % 5.1 Eosinophils % 0.1 Basophils % 0.1 Neutrophils # 13.5 H Lymphocytes # 0.7 L Monocytes # 0.8 H Eosinophils # 0.0 Basophils # 0.0 Surgery Progress Note: A/P - Problem (1) Choledocholithiasis Current Visit: Yes Code(s): K80.50 - CALCULUS OF BILE DUCT W/O CHOLANGITIS OR CHOLECYST W/O OBST Status: Acute - Plan Plan: POD 1 lap droon -ERCP today -home later today or tomorrow
[2018-08-28] MEDS ORDERED: Fentanyl 100 MCG/2 ML VIAL ONE (11:52)
[2018-08-28 11:53] VITALS: BP 92/58; TEMP 99.2
[2018-08-28] MEDS ORDERED: Iothalamate Meglumine 60% 50 ML VIAL FS ONE (12:53)
[2018-08-28] MEDS ORDERED: Glycopyrrolate 0.2 MG/ML 5 ML SYRINGE ONE ×2 (13:08→14:55)
[2018-08-28] MEDS ORDERED: HYDROmorphone 2 MG/ML VIAL SLOW IVP PRN (13:24)
[2018-08-28] MEDS ORDERED: Promethazine HCl 25 MG/ML VIAL SLOW IVP PRN (13:24)
[2018-08-28] MEDS ORDERED: Meperidine HCl/PF 25 MG/ML VIAL SLOW IVP PRN (13:24)
[2018-08-28] MEDS ORDERED: Promethazine HCl 25 MG/ML VIAL IM PRN (13:24)
[2018-08-28] MEDS ORDERED: PROPOFOL 200 MG/20 ML VIAL ONE (14:55)
[2018-08-28] MEDS ORDERED: Dexamethasone 20 MG/5 ML VIAL ONE (14:55)
[2018-08-28] MEDS ORDERED: Ondansetron PF 4 MG/2 ML Vial ONE (14:55)
[2018-08-28] MEDS ORDERED: Rocuronium Bromide 10 MG/ML (10ML VIAL) ONE (14:55)
[2018-08-28] MEDS ORDERED: Lidocaine 1% PF 5 ML VIAL ONE (14:55)
[2018-08-28] MEDS ORDERED: ePHEDrine 50 MG/ML VIAL ONE (14:55)
[2018-08-28] MEDS: Sodium Chloride 0.9% 1,000 ML IV SCH (15:49)
[2018-08-28] MEDS: Famotidine 20 MG TAB PO SCH (15:49)
--- NOTE | 2018-08-28 16:13 | PDOC.PN ---
- Subjective Encounter Start Date: 08/28/18 Encounter Start Time: 16:11 Ms. Sotelo was seen today in follow-up of choledocholithiasis. she is back from ERCP. She does not have any complaints. She denies abdominal pain or nausea. She would like to go home. - Objective Resuscitation Status - Order Detail: 08/27/18 20:59 Resuscitation Status Routine Resuscitation Status: FULL: Full Resuscitation MAR Reviewed: Yes Vital Signs & Weight: Vital Signs (12 hours) Temp Pulse Resp BP Pulse Ox 08/28/18 11:14 99.2 F 75 18 92/58 L 95 08/28/18 08:00 95 08/28/18 07:44 97.5 F L 67 18 93/55 L 95 Weight Weight 129 lb 3.2 oz Result Diagrams: 08/28/18 05:20 08/27/18 12:00 Phys Exam - Physical Examination HEENT: PERRLA Respiratory: no wheezing, no rales, no rhonchi, clear to auscultation bilateral Cardiovascular: RRR, no significant murmur, no rub Gastrointestinal: soft, non-tender, no distention, positive bowel sounds Musculoskeletal: no edema Dx/Plan (1) Choledocholithiasis Code(s): K80.50 - CALCULUS OF BILE DUCT W/O CHOLANGITIS OR CHOLECYST W/O OBST Status: Acute (2) Hypertension Code(s): I10 - ESSENTIAL (PRIMARY) HYPERTENSION Status: Chronic - Plan * Choledocholithiasis- she is s/p ERCP and clinically stable * HTN- blood pressure is stable * Her diet is being advanced * disposition as per Surgery.
--- NOTE | 2018-08-28 20:10 | OP ---
DATE OF PROCEDURE: 08/28/2018 PROCEDURES PERFORMED: 1. ERCP with papillotomy. 2. ERCP with stone extraction with biliary balloon size 9 to 12 mm size. PREOPERATIVE DIAGNOSES: 1. Abnormal LFTs. 2. Dilated common bile duct. 3. Common bile duct stone. POSTOPERATIVE DIAGNOSES: 1. Two common bile duct stones removed, one is very small, other one is about 1.5 to 1.8 cm. The both stones were pigmented stones. 2. The ampulla was located inside the diverticulum. DESCRIPTION OF PROCEDURE: The patient was intubated and was given sedation by Anesthesia Department. A bite-block was placed. The patient was transferred from the stretcher to the fluoroscopy table. The patient was placed on her stomach. A [employer] video duodenoscope under direct vision was passed down the oropharynx past the GE junction into the stomach and into the descending duodenum easily. The papilla was identified. The papilla appears small and somewhat . It was located within the diverticulum. The cannulation was achieved over a guidewire into the common bile duct. Injection of contrast showed dilation of CBD with a filling defect. Generous papillotomy was made at 12 o'clock position. The cut was made 1.5 cm. Following the papillotomy, the papillotome was exchanged to the biliary balloon size 9 to 12 mm. The balloon was inflated and the duct was swept. Initially, a small pigmented stone came out. Subsequently, a large stone measuring approximately about 1.5 to 1.8 cm came out easily. Occlusion cholangiogram showed no more filling defects. The biliary balloon was removed and also the scope was removed. The stomach was decompressed. RECOMMENDATIONS: 1. Diet as tolerated. 2. Discharge planning as per Dr. Chong Irizarry. Job ID: [id number]
--- NOTE | 2018-08-29 14:07 | DIS ---
DATE OF ADMISSION: 08/27/2018 DATE OF DISCHARGE: 08/28/2018 PRIMARY CARE PHYSICIAN: Pau Case MD DISCHARGE DISPOSITION: Home. PRIMARY DISCHARGE DIAGNOSES: 1. Choledocholithiasis. 2. Cholecystitis. 3. Depression. DISCHARGE MEDICATIONS: Include: 1. Olanzapine 5 mg at bedtime. 2. Lamotrigine 100 mg at bedtime. 3. Lexapro 10 mg at bedtime. 4. Diazepam 5 mg t.i.d. as needed. 5. Dextromethorphan/amphetamine 12.5 mg p.o. daily. PROCEDURES DONE DURING ADMISSION: The patient had an ERCP with the removal of two common bile duct stone, one was 1.5 cm, the other 1.8. Also had papillotomy. CODE STATUS: Full code. ALLERGIES: TO CODEINE AND LEVOFLOXACIN. HOSPITAL COURSE: Ms. Sotelo is a pleasant 57-year-old female who recently had a laparoscopic cholecystectomy done as an outpatient surgery. She was brought into the hospital due to a retained stone in the common duct. Gastroenterology as well as General Surgery was consulted. She underwent ERCP with papillotomy and stone extraction. She had an uneventful postoperative course and tolerated the procedure well. Actually by the end of the day postprocedure, she was actually asking to go home. She was able to tolerate a clear liquid diet that was later advanced and she was subsequently discharged home on 08/28/2018 to have close outpatient followup with Dr. Irizarry and also with her primary care physician in 1 to 2 weeks. Job ID: [id number]
== END 2018-08-28 16:55 | disposition home or self-care (01) | DRG 419 ==
LOC: SCSER 11:25 → SDC 16:23 → SURG A 19:11
PROVIDERS: ADMIT Surgery; ATTEND Surgery
PROC: 0FT44ZZ Resection of Gallbladder, Percutaneous Endoscopic Approach (ICD-10-PCS; principal; 2018-08-27)
PROC: BF10YZZ Fluoroscopy of Bile Ducts using Other Contrast (ICD-10-PCS; 2018-08-27)
PROC: 0FC98ZZ Extirpation of Matter from Common Bile Duct, Via Natural or Artificial Opening Endoscopic (ICD-10-PCS; 2018-08-28)
DX: K80.62 Calculus of gallbladder and bile duct with acute cholecystitis without obstruction (principal); I10 Essential (primary) hypertension; E66.9 Obesity, unspecified; F32.9 Major depressive disorder, single episode, unspecified; F41.9 Anxiety disorder, unspecified; Z79.899 Other long term (current) drug therapy; Z68.25 Body mass index [BMI] 25.0-25.9, adult; Z98.890 Other specified postprocedural states; Z90.710 Acquired absence of both cervix and uterus; Z88.5 Allergy status to narcotic agent; Z88.1 Allergy status to other antibiotic agents; Z98.84 Bariatric surgery status
CPT/HCPCS: 36415; 47532; 74330; 76705; 80053; 83690; 85025; 88304; 93005; J0131; J0670; J1610; J2270; J2405; J2543; J3010; J7050; Q9961; S0028

== ENCOUNTER 2025-04-28 13:03 | Emergency (ER) | payer MEDICARE ==
[2025-04-28] MEDS ORDERED: Ondansetron PF 4 MG/2 ML Vial ONE (15:02)
[2025-04-28 15:50] LABS: ALT (SGPT) Less than 7 U/L (Less than 34); AST (SGOT) 26 U/L (11-34); Albumin 4.3 g/dL (3.1-4.5); Alkaline Phosphatase 117 U/L (40-110); Anion Gap 14 mmol/L (10-20); BUN (Urea Nitrogen) 6 mg/dL (9.8-20.1); Bilirubin, Total 0.5 mg/dL (0.3-1.2); Calc. Creatinine Clearance 0 mL/min (70-130); Calcium 9.6 mg/dL (7.8-10.44); Carbon Dioxide 27 mmol/L (23-31); Chloride 106 mmol/L (98-107); Globulin 2.9 g/dL (2.4-3.5); Glucose 86 mg/dL (80-115); Lipase 27 U/L (8-78); Potassium 3.4 mmol/L (3.5-5.1); Sodium 144 mmol/L (136-145)
[2025-04-28 16:00] LABS: #Basophils 0.03 10x3/uL (0.0-0.2); #Eosinophils 0.06 10x3/uL (0.0-0.7); #Monocytes 0.32 10x3/uL (0.11-0.59); #Neutrophils 1.61 10x3/uL (1.40-6.50); %Basophils 1.0 % (0.0-1.0); %Eosinophils 2.1 % (0.0-10.0); %Lymphocytes 30.8 % (21.0-51.0); %Monocytes 11.0 % (0.0-10.0); %Neutrophils 55.1 % (42.0-75.0); Hematocrit 40.9 % (36.0-47.0); Hemoglobin 12.6 g/dL (12.0-16.0); Mean Corpuscular Hemoglobin 29.1 pg (27.0-31.0); Mean Corpuscular Volume 94.5 fL (78.0-98.0); Platelet Count 160 10x3/uL (130-400); Red Blood Cell (RBC) Count 4.33 mill/uL (4.20-5.40); White Blood Cell (WBC) Count 2.92 10x3/uL (4.8-10.8)
== END 2025-04-28 18:47 | disposition home or self-care (01) ==
LOC: ERS 13:03
DX: B02.9 Zoster without complications (principal); R11.0 Nausea; I10 Essential (primary) hypertension
CPT/HCPCS: 80053; 83690; 85025; 87040; J2405; J2550; 96374; 96375